=== PATIENT | male | born 1955 | race Caucasian/White ===

== ENCOUNTER 2022-11-30 13:41 | Emergency (ER) | payer MEDICARE, MEDICAID ==
[~2022-11-30] VITALS: Ht 167.6 cm; Wt 77.0 kg
[2022-11-30] MEDS ORDERED: SODIUM CHLORIDE 0.9% 1,000 ML IV ONE (15:00)
[2022-11-30 15:16] LABS: BASOPHILS % 0.6 % (0.0-2.0); EOSINOPHILS % 1.9 % (0.0-5.0); HEMATOCRIT. 26.4 % (42.0-52.0); HEMOGLOBIN. 9.1 g/dL (14.0-18.0); LYMPHOCYTES % 9.4 % (20.0-50.0); MEAN CORPUSCULAR HEMOGLOBIN 28.5 pg (28.0-32.0); MEAN CORPUSCULAR VOLUME 82.5 fL (80.0-94.0); MONOCYTES % 7.1 % (2.0-8.0); PLATELET 230 x1000/uL (130-400); RED CELL DISTRIBUTION WIDTH 17.3 % (11.6-14.6)
[2022-11-30 15:24] LABS: CHLORIDE 102 mEq/L (98-107)
[2022-11-30 15:33] LABS: ETHANOL BLOOD < 10 mg/dL
[2022-11-30 18:00] VITALS: BP 152/95
== END 2022-11-30 18:33 | disposition home or self-care (01) ==
LOC: ER 13:41
DX: R53.1 Weakness (principal); R42 Dizziness and giddiness; E11.9 Type 2 diabetes mellitus without complications; I10 Essential (primary) hypertension
CPT/HCPCS: 36415; 71045; 80053; 80320; 84484; 85025; 93005; 96360; 99285; G0480